=== PATIENT | female | born 2000 | race Caucasian/White ===

== ENCOUNTER → 2020-05-10 13:53 | Outpatient (BNVA) | payer BC, SELFPAY | PROVIDERS: Family Provider Family Medicine; PCP Family Medicine; Visit Provider Nurse Practitioner | DX: J02.9 Acute pharyngitis, unspecified (principal); K52.9 Noninfective gastroenteritis and colitis, unspecified | CPT/HCPCS: 87071; 87880 ==

== ENCOUNTER → 2021-05-11 11:48 | Outpatient (BNVA) | payer BC, SELFPAY | PROVIDERS: PCP Family Medicine; Visit Provider Nurse Practitioner Family | DX: Z20.822 Contact with and (suspected) exposure to COVID-19 (principal); J06.9 Acute upper respiratory infection, unspecified | CPT/HCPCS: 87426 ==

== ENCOUNTER 2024-07-07 21:34 | Emergency (ER) | payer BC, SELFPAY ==
--- NOTE | 2024-07-07 21:47 | XRR_ITS ---
PROCEDURE INFORMATION: Exam: XR Left Ankle Exam date and time: 07/07/2024 10:07 PM Age: 23 years old Clinical indication: Injury or trauma; Fall; Swelling (edema); Ankle; Left; Additional info: Injury, left lateral ankkle pain TECHNIQUE: Imaging protocol: Radiologic exam of the left ankle. Views: 3 or more views. COMPARISON: No relevant prior studies available. FINDINGS: Bones/joints: No acute fracture or dislocation. Joint effusion. Soft tissues: Marked anterolateral ankle soft tissue swelling. XR/XR ankle LT min 3V* [id number] IMPRESSION: 1. No acute fracture. 2. Sprained ankle.
[2024-07-07 21:53] VITALS: BP 137/96; PULSE 102; RESP 16; TEMP 36.7; O2SAT 99; BMI 30.8
[2024-07-07 22:29] VITALS: BP 147/101; PULSE 85; RESP 16; O2SAT 98
--- NOTE | 2024-07-07 23:03 | ED_ITS ---
HPI - Extremity Problem General: Chief complaint: Extremity Injury, Lower Stated complaint: left ankle injury Time Seen by Provider: 07/07/24 22:23 Source: patient Mode of arrival: ambulatory Limitations: no limitations History of Present Illness: Patient is a 23-year-old female presents the emergency department left ankle injury onset earlier tonight. States she stepped in a hole and this caused an inversion ankle injury. No history of fractures or surgeries. Notes increased swelling to the ankle, also notes that the pain is slowly increasing and is now on 8/, worse with weightbearing. She does appear comfortable at time of physical examination. Has not taken anything for pain yet. MD Complaint: joint swelling and joint pain Onset (ago): hour(s) Pain Consistency: constant Location: left and lower extremity Radiation: none Exacerbating factors: weight bearing and walking Associated symptoms: Deny chest pain, fever(s) or rash Related Data Previous Rx's Medication Instructions Recorded omeprazole 40 mg capsule,delayed 40 mg PO DAILY #14 caps 05/10/20 release azithromycin 500 mg tablet 500 mg PO DAILY 5 days #5 tabs 09/23/22 (Zithromax) ibuprofen 600 mg tablet 600 mg PO Q8H PRN pain #30 tabs 09/23/22 Allergies Allergy/AdvReac Type Severity Reaction Status Date / Time No Known Allergies Allergy Verified 09/23/22 13:55 Review of Systems General: Reports: 10 or more systems reviewed and unremarkable except in HPI and below Const: Denies: fever(s) or chills Card: Denies: chest pain Resp: Denies: dyspnea or productive cough GI: Denies: abdominal pain, nausea, vomiting or diarrhea : Denies: flank pain Musc: Reports: joint pain (Left ankle) and joint swelling (Left ankle); Denies: neck pain, back pain, extremity pain, extremity swelling, joint redness, joint warmth, limited range of motion or muscle weakness Skin/Breast: Denies: rash Neuro: Denies: headache(s), numbness in extremities or weakness in extremities PFSH ED PFSH: Social History Smoking and tobacco/nicotine status: current every day tobacco/nicotine user e- cigarettes Physical Exam Const: COMMON NORMALS: no acute distress, patient oriented x3, no limitations, healthy appearing, alert and well nourished HENMT: COMMON NORMALS: normocephalic and atraumatic HEAD & SCALP: normocephalic and atraumatic Neck/C-Spine: COMMON NORMALS: full ROM, supple and no meningeal signs Resp: COMMON NORMALS: normal respiratory effort, No use of accessory muscles and clear to auscultation bilaterally AUSCULTATION: clear to auscultation bilaterally Cardio: COMMON NORMALS: regular rate and regular rhythm RATE: regular rate RHYTHM: regular rhythm Extremity: COMMON NORMALS: full ROM, capillary refill normal and no clubbing, cyanosis or edema NARRATIVE EXTREMITY EXAM: Moderate amount of soft tissue swelling to patient's left lateral malleolus. Tender to palpation over the ATFL. Pulses palpable. Distal neurovascular status intact she has good strength and full range of motion, no pain with inversion. Negative knee examination. Negative distal lower extremity examination. Neuro: COMMON NORMALS: patient oriented x3, moves all extremities, no focal motor deficits and no sensory deficits noted SENSORIUM/ORIENTATION: Yes alert MENINGEAL SIGNS: Yes no meningeal signs Skin: COMMON NORMALS: no rashes or lesions noted GENERAL SKIN EXAM: no rashes or lesions noted Course Vital Signs: Vital signs: Vital Signs Temperature 98.0 F 07/07/24 21:53 Pulse Rate 85 07/07/24 22:29 Respiratory Rate 16 07/07/24 22:29 Blood Pressure 147/101 07/07/24 22:29 Pulse Oximetry 98 07/07/24 22:29 Oxygen Delivery Me thod Room Air 07/07/24 22:29 MDM - Extremity (Nontraumatic) Medical Decision Making Patient presented with left ankle injury. Swelling noted on examination tender to palpation over the ATFL. She had negative testing for high ankle sprain, and distal neurovascular status intact. Will treat with RICE therapy as her x-ray was unremarkable aside from the notable swelling, also was given naproxen prior to discharge and encouraged to alternate NSAIDs and Tylenol at home. She will follow-up primary care if she continues to have pain in a week for reimaging. XR interpretation done by ED provider, pending radiology final review ED provider radiology interpretation(s): X-ray examination of the left ankle shows moderate soft tissue swelling but no fracture or dislocation appreciated at this time. Discharge Plan Discharge Patient Disposition: Home Clinical Impression: Left ankle sprain Condition: Stable Prescriptions: No Action omeprazole 40 mg capsule,delayed release(DR/EC) 40 mg PO DAILY Qty: 14 0RF azithromycin [Zithromax] 500 mg tablet 500 mg PO DAILY 5 Days Qty: 5 0RF ibuprofen 600 mg tablet 600 mg PO Q8H PRN (Reason: pain) Qty: 30 0RF Discharge Orders: Discharge ED (Routine); Ordered 07/07/24 Ordered By: Jose Guadalupe Philippe Referrals: Javed Dimas, [Primary Care Provider] - Discharge Diet: Usual diet Discharge Activity: Increase activity as tolerated Patient Instructions: Ankle Sprain (ED), Pain Management Activity Restrictions/Additional Instructions: Rest, ice, compression, and elevation. Alternate Tylenol and ibuprofen at home. Gentle range of motion exercises as tolerated. Please begin weightbearing as tolerated. Keep in mind that with any worsening of pain or no improvement after a week, you may follow-up with primary care for repeat image to evaluate for any small fractures. Otherwise return with any new or worsening symptoms. Coding Level of Care Code ED Marketing And Development Coordinator for Vinny Ayala
[2024-07-07] MEDS: naproxen 500 mg Tablet PO (23:15)
[2024-07-07 23:17] VITALS: BP 145/104; PULSE 98; O2SAT 100
== END 2024-07-07 23:17 | disposition home or self-care (01) ==
PROVIDERS: Emergency Provider Physician Assistant; PCP Family Medicine
DX: S93.402A Sprain of unspecified ligament of left ankle, initial encounter (principal); F17.290 Nicotine dependence, other tobacco product, uncomplicated; W18.42XA Slipping, tripping and stumbling without falling due to stepping into hole or opening, initial encounter
CPT/HCPCS: 73610; 99283

== ENCOUNTER 2024-11-16 07:43 | Outpatient (CLI) | payer BC, SELFPAY ==
--- NOTE | 2024-11-16 08:10 | XR_ITS ---
WS: [id number] Exam: XR hip RT 1V wo/w pel [id number] Date/Time of Exam: 11/16/2024 8:17 AM Reason For Exam: M25.551 - Pain in right hip Comparison with previous exam 03/12/[address] scan performed 03/13/2014. Prominent osteophyte seen along the superior lateral acetabulum. There is lateral displacement of the femoral head. The osteophyte is somewhat more prominent than noted on the prior study. The joint spa ce appears widened. No fracture or bone destruction seen. Recommendations: MRI of the hip might add additional information if thought to be clinically warrante d. XR/XR hip RT 1V wo/w pel [id number] IMPRESSION: 1. Prominent osteophyte along the superior lateral aspect of the RIGHT acetabul um has enlarged since the previous study. There is also lateral displacement of the RIGHT femoral head unchanged in appearance. No fracture or bone destructio n noted. Some widening of the joint compartment noted.
--- NOTE | 2024-11-16 08:11 | XR_ITS ---
WS: [email or web address] Exam: XR cervical spine 4-5V [id number] Date/Time of Exam: 11/16/2024 8:17 AM Reason For Exam: M54.2 - Cervicalgia No fracture or dislocation. Disc spaces are preserved. Posterior elements are intact. No flexion or e xtension instability. Normal paraspinal soft tissues. XR/XR cervical spine 4-5V [id number] IMPRESSION: 1. Normal cervical spine study.
== END 2024-11-16 07:44 | disposition home or self-care (01) ==
PROVIDERS: PCP Family Medicine; Visit Provider Family Medicine
DX: R29.4 Clicking hip (principal); M25.551 Pain in right hip; M25.78 Osteophyte, vertebrae; R93.7 Abnormal findings on diagnostic imaging of other parts of musculoskeletal system; S14.109A Unspecified injury at unspecified level of cervical spinal cord, initial encounter; X58.XXXA Exposure to other specified factors, initial encounter
CPT/HCPCS: 72050; 73501

== ENCOUNTER → 2025-09-29 11:14 | Outpatient (BNVA) | payer OTHER, SELFPAY | PROVIDERS: PCP Family Medicine; Visit Provider Family Medicine | DX: Z00.00 Encounter for general adult medical examination without abnormal findings (principal); E03.9 Hypothyroidism, unspecified; E66.9 Obesity, unspecified; Z68.37 Body mass index [BMI] 37.0-37.9, adult | CPT/HCPCS: 80053; 80061; 82607; 83036; 84443; 85025 ==